=== PATIENT | male | born 1960 | race Caucasian/White ===

== ENCOUNTER 2024-07-17 14:54 | Outpatient (CLI) | payer BC ==
[~2024-07-17 14:54] MED LIST: WARF-113 PO; [UNRECOGNIZED DRUG - CODE] PO
[2024-07-17 15:35] LABS: BILIRUBIN,URINE SMALL (Neg); CLARITY,URINE CLOUDY (Clear); COLOR,URINE AMBER (Yellow); GLUCOSE, URINE NEGATIVE (Neg); KETONES,URINE NEGATIVE (Neg); LEUKOCYTE ESTERASE ,URINE MODERATE (Neg); OCCULT BLOOD,URINE MODERATE (Neg); PH,URINE 6.5 (4.8-8.0); PROTEIN,URINE 100 mg/dl (Neg)
[2024-07-17 15:40] LABS: NITRITES, URINE NEGATIVE (Neg)
[2024-07-17 15:42] LABS: RBC,URINE TNTC /HPF (0-2); SQUAMOUS EPITHELIAL CELL,UR FEW /LPF (FEW); UA COLLECTION TYPE NON-SPECIFIED; WBC,URINE TNTC /HPF (0-4)
[2024-07-17 15:43] LABS: BACTERIA,URINE 1+ /HPF (Neg)
== END 2024-07-17 23:59 | disposition home or self-care (01) ==
LOC: LAB SPEC 14:54
PROVIDERS: ATTEND Internal Medicine
DX: R31.9 Hematuria, unspecified (principal); R82.90 Unspecified abnormal findings in urine
CPT/HCPCS: 81001; 87088